=== PATIENT | female | born 1950 | race Caucasian/White ===

== ENCOUNTER 2019-09-23 07:26 | Day surgery (SDC) | payer OTHER ==
[2019-09-16 15:18] LABS: Hematocrit 36.2 % (36.0-45.0); RBC Red Blood Cell Count 3.64 M/uL (3.86-4.86)
[2019-09-16 15:19] LABS: Absolute Lymphocytes (CBC) 0.9 K/uL (0.7-4.9); Basophils % 0.6 % (0-1.3); Lymphocytes % 21.1 % (15.3-44.8); MPV 10.1 fL (7.6-11.3)
[2019-09-16 15:25] LABS: Albumin 4.3 g/dL (3.4-5.0); Bilirubin Total 0.6 mg/dL (0.2-1.0); Potassium 3.1 mmol/L (3.5-5.1); Protein, Total 8.5 g/dL (6.4-8.2)
--- NOTE | 2019-09-16 21:25 | RAD REPORT ---
EXAM DESCRIPTION: RAD - Chest Pa And Lat (2 Views) - 09/16/2019 9:09 pm CLINICAL HISTORY: pre op for surgery Chest pain. COMPARISON: No comparisons TECHNIQUE: PA and lateral views of the chest were obtained. FINDINGS: The lungs are hyperexpanded compatible with COPD. The heart is upper limit of normal in si ze. No fracture or aggressive bony process. IMPRESSION: COPD without acute process identified.
--- NOTE | 2019-09-17 10:54 | EKG ---
Test Date: 2019-09-16 Test Time: 14:48:08 Pumper Gager Apprentice: Noemi Saavedra MEASUREMENT RESULTS: Intervals: Rate: 68 TN: 172 QRSD: 86 QT: 420 QTc: 446 [place]: P: 70 TN: 172 QRS: 74 T: 63 INTERPRETIVE STATEMENTS: Normal sinus rhythm Normal ECG Compared to ECG 05/14/2019 14:56:29 Atrial premature complex(es) no longer present Electronically Signed On 09-17-19 10:53:23 CDT by Ashwin Crenshaw
--- OUTSIDE RECORDS SUMMARY | 2019-09-23 07:28 | XMS REPORT | Continuity of Care Document ---
:1950 Author Organization [employer] Care Team Providers Name Role Phone [employer] Unavailable Un available Problems Problem Status Onset Classification Date Comments Sourc e Date Reported Cervical Active Problem 09/02/2019 [facility] myelopathy Neuro (disorder) Hypothyroidism Active Problem 09/02/2019 Misc her (disorder) Neuro Skin ulcer Active Problem 09/02/2019 Mischer (disorder) Neuro Medications Medication Details Route Status Patient Ordering Order Source Instructions Provider Date thyroid (SHELTER) 15 MG 15 mg = 1 Active Mi josie Oral Tablet [CLEAN RICE BROKER tab, PO, 020 Neuro Thyroid] Daily, 0 Refill(s) SMZ-TMP DS 800 mg- PO, BID, Active Misc her 160 mg oral tablet 0 020 Neuro Refill(s) CLEAN RICE BROKER Thyroid 75 mg, Active Mischer PO, 020 Neuro Daily, 0 Refill(s) Hydrochlorothiazide 50 mg, Active Misc her PO, 020 Neuro Daily, 0 Refill(s) Acetaminophen 325 MG 1 tab, Active Mis bakari / Hydrocodone PO, TID, 020 Neuro Bitartrate 10 MG Oral 0 Tablet Refill(s) SMZ-TMP DS 800 mg- 500 mg, Active Misch er 160 mg oral tablet PO, 020 Neuro Daily, 0 Refill(s) Cipro 500 mg, Active Mischer PO, BID, 020 Neuro 0 Refill(s) Allergies, Adverse Reactions, Alerts Substance Category Reaction Severity Reaction Status Date Comments S ource type Reported Cymbalta Assertion headaches Drug Active Mis bakari allergy Neuro Lyrica Assertion swelling Drug Active Misch er allergy Neuro Immunizations No Data Provided for This Section Results No Data Provided for This Section Pathology Reports No Data Provided for This Section Diagnostic Reports No Data Provided for This Section Consultation Notes No Data Provided for This Section Discharge Summaries No Data Provided for This Section History and Physicals No Data Provided for This Section Vital Signs Vital Sign Value Date Comments Source Systolic (mm Hg) 143 [place] [facility] [place] Diastolic (mm Hg) 87 07[place]11/2019 [facility] [place] Heart Rate 86 07/11/2019 [facility] [place] Respitory Rate 16 07[place]11/2019 [facility] [place] Height 172.72 cm 07/11/2019 [facility] [place] 56.364 07[place]11/2019 [facility] [place] BMI Calculated 18.89 07/11/2019 [facility] [place] Encounters Location Location Encounter Encounter Reason Attending ADM DC Stat us Source Details Type Number For Provider Date Date Visit Outpatient [id number] Roland 07/10 Active [facility] Dwayne MNA Outpatient [id number] [place] 07/10 [place]11 [facility] [place] [facility] [place] Out[place] [id number] Roland 08/12 Active [facility] D[place] MNA Ambulatory [id number] [place] 08/12 08/12 [facility] [place] Neuro [place] MNA Outside [id number] 08/29 08/31 [facility] Neurology Medical /2019 Neuro [facility] Records Outpatient [id number] Roland 10/21 Active [facility] [place] Procedures No Data Provided for This Section Assessment and Plan No Data Provided for This Section Plan of Care No Data Provided for This Section Social History Social History Date Source Social History [place]Response [place] [facility] [place] Smoking Status Never smoker; Exposure to Tobacco Smoke None; Cigarette Smoking Last 365 Days No; Reg Smoking Cessation Counseling No entered on: 07/11/19 Family History No Data Provided for This Section Advance Directives No Data Provided for This Section Functional Status No Data Provided for This Section
--- OUTSIDE RECORDS SUMMARY | 2019-09-23 07:29 | XMS REPORT | Continuity of Care Document ---
:1950 Author Organization [facility] t Address [address] [place] [address] Care Team Providers Name Role Phone Keon Luz MD Attending Clinician Jeet Kay Attending Clinician Radiology Attending Clinician Unavailable Pob, Lab Main Attending Clinician Unavailable Vani JENSEN, L Attending Clinician Problems Condition Condition Condition Status Onset Resolution Last Treating Co mments Source Name Details Category Date Date Treatment Clinician Date Cervical Problem Active 2019-09-02 Mem oria myelopathy 22:57:55 l (disorder) Cervical He rmann myelopathy (disorder) Active Problem 09/02/2019 [facility] Hypothyroi Problem Active 2019-09-02 M emoria dism 22:57:55 l (disorder) Buster n Hypothyroi dism (disorder) Active Problem 09/02/2019 [facility] Skin ulcer Problem Active 2019-09-02 M emoria (disorder) 22:57:55 l Skin [place] ulcer (disorder) Active Problem 09/02/2019 [facility] Allergies, Adverse Reactions, Alerts Allergy Allergy Status Severity Reaction(s) Onset Inactive Treating Comm ents Source Name Type Date Date Clinician Adrian Campbell Active Tobiasori a rainer Rice Lyrica Lyrica Active Memoria l Dwayne Social History Smoking Status Start Date Stop Date Source Social History [facility] [place] Medications Ordered Filled Start Stop Current Ordering Indication Dosage Frequency Signature Comments Components Source Medication Medication Date Date Medication? Clinician (SIG) Name Name thyroid 2019-0 Yes 15 mg = 1 Memor ia (CARE HOME) 15 MG 5-21 tab, PO, l Oral Tablet 20:43: Daily, 0 He rmann [NARROW FABRIC LOOM FIXER 00 Refill(s) Thyroid] SMZ-TMP DS 2020-0 Yes PO, BID, 0 M emoria 800 mg- 160 5-21 Refill(s) l mg oral 20:14: [place] tablet 00 [employer] FIXER Thyroid 2020-0 Yes 75 mg, PO, M emoria 5-21 Daily, 0 l 20:08: Refill(s) [place] 00 Hydrochloro 2020-0 Yes 50 mg, PO, Memoria thiazide 5-21 Daily, 0 l 20:08: Refill(s) [place] 00 Acetaminoph 2020-0 Yes 1 tab, PO, Memoria en 325 MG / 5-21 TID, 0 l Hydrocodone 20:08: Refill(s) H ermann Bitartrate 00 10 MG Oral Tablet SMZ-TMP DS 2019-0 Yes 500 mg, Jaylen joseph 800 mg- 160 5-21 PO, Daily, l mg oral 20:08: 0 D[place] tablet 00 Refill(s) Cipro 2019-0 Yes 500 mg, Memoria 5-21 PO, BID, 0 l 20:08: Refill(s) [place] 00 Vital Signs Vital Name Observation Time Observation Value Comments Source Systolic (mm Hg) 2019-07-11 20:05:00 Jaylen rial Dway[place] Diastolic (mm Hg) 2019-07-11 20:05:00 Tobias Rice Heart Rate 2019-07-11 20:05:00 [facility] Respitory Rate 2019-07-11 20:05:00 Damon Vasquez Height 2019-07-11 20:05:00 172.72 cm [facility] Weight 2019-07-11 20:05:00 [facility] BMI Calculated 2019-07-11 20:05:00 Damon Vasquez Procedures This patient has no known procedures. Encounters Start End Encounter Admission Attending Care Care Encounter Source Date/Time Date/Time Type Type Clinicians Facility Department ID 2019-08-30 2019-08-31 Outpatient MHMISCHER MHMISCHER [id number] 09:05:31 23:59:59 00 2019-08-30 2019-08-30 Telephone SCAR Luz [id number] 00:00:00 00:00:00 Pau Meraz [id number] [place] [id number] Professio [phone] formerly [facility] 044 [facility] [address] 2019-08-13 2019-08-13 Outpatient RHINA KayER [id number] 15:00:00 15:00:00 Roland 01 [facility] 2019-07-25 2019[facility]07[facility] [id number] 00:00:00 00:00:00 Pau Meraz [id number] [place] [id number] Professio [phone] formerly [facility] 044 [facility] [address] 2019-07-18 2019-07-18 Hospital Radiology [facility] [id number] 15:30:00 23:59:00 Encounter Mariya [id number] [place] [id number] Arnold [id number] 2019-07-18 2019-07-18 Senior Procurement Manager Alba Mancini [facility] [id number] 16:51:26 17:06:26 Visit Lab Main Mariya [id number] [place] [id number] Professio [phone] [facility] 353 [facility] [address] 2019-07-11 2019-07-11 Outpatient RHINA KayJUANA [id number] 15:15:00 23:59:59 Roland 00 [facility] 2019-06-17 2019-06-17 Office [facility] [id number] 15:14:37 16:05:26 Visit [facility] [id number] Surgical [id number] Specialti [phone] Ginna Meraz Results This patient has no known results.
[2019-09-23] MEDS ORDERED: MINERAL OIL, LITE 10 ML VIAL ONE (07:59)
[2019-09-23] MEDS ORDERED: Ringers Lactate 1,000 ML IV ONE (08:00)
[2019-09-23] MEDS ORDERED: CEFAZOLIN/SWI 1gm 1 GM/10 ML SYR ONE (08:00)
[2019-09-23] MEDS ORDERED: MIDAZOLAM HCL 2 MG/2 ML INJ ONE (08:34)
[2019-09-23] MEDS ORDERED: ROPLVACAINE HCL 40 ML ONE (08:34)
[2019-09-23] MEDS ORDERED: LIDOCAINE 2% MPF 5 ML VIAL ONE ×2 (08:34→08:39)
[2019-09-23] MEDS ORDERED: dexAMETHasone 10 MG/ML VIAL ONE (08:36)
[2019-09-23] MEDS ORDERED: propofoL 200 MG/20 ML VIAL IV ONE (08:36)
[2019-09-23] MEDS ORDERED: FENTANYL CITR 100 MCG/2 ML ONE (08:36)
[2019-09-23] MEDS ORDERED: BUPIVACAINE 0.5% PF 10 ML VIAL ONE (08:49)
[2019-09-23] MEDS ORDERED: EPHEDRINE SULF 50 MG/ML VIAL ONE (09:07)
[2019-09-23] MEDS ORDERED: KCL 20 MEQ/100 mL IVPB 20 MEQ/100 ML BAG IV SCH (10:00)
[2019-09-23 10:46] VITALS: BP 146/83; TEMP 97.6; O2SAT 95
[2019-09-23] MEDS ORDERED: HYDROCODONE/APAP 7.5/325 MG TAB ONE (10:57)
--- NOTE | 2019-09-23 20:19 | OP ---
Date of Procedure: 09/23/2019 Surgeon: Tomas Howard MD Head Of Insight: None. Preoperative Diagnosis: Nonhealing wound, left ankle. Postoperative Diagnosis: Nonhealing wound, left ankle. Procedure: Debridement of left ankle wound with split-thickness skin graft 5 x 2 cm from the left th igh. Specimen: None. Finding: As above. Anesthesia: General and regional femoral block used as well. Complications: None. Disposition: The patient tolerated the procedure, in stable condition, taken to Recovery in good gen eral condition. Description Of Procedure: The patient was brought to the OR and placed in supine position. General anesthesia was begun. The patient was prepped and draped in usual sterile fashion. Marcaine 0.5% wa s infiltrated locally. Then, curette was used to debride the wound approximately 5 x 2 cm on the lef t medial ankle off all fibrin, bleeding controlled with pressure. Then, mineral oil utilized and the n approximately a 5 x 2 cm segment of split-thickness skin graft 8th of an inch done in the standard fashion, then fenestrated in the standard fashion, then placed over the wound and secured with 3-0 ch romic circumferential. Then, Xeroform dressing applied to the left thigh and Actisorb dressing appli ed to the left ankle. Sterile dressing was applied. The patient was awakened and taken to Recovery in good general condition. Discharge Note: The patient will go to Day Surgery and home when stable. Disposition: Home. Condition: Stable. Discharge Instructions: Resume home medications and diet. Activity as tolerated. No heavy lifting. Keep dressing clean and dry, sponge bathe only. Follow up in the wound healing center in 1 week. Call for appointment. The patient has pain medicine already. /MODL Voice ID: [id number] Report ID: [id number]
== END 2019-09-23 11:15 | disposition home or self-care (01) ==
LOC: OR 07:26
PROVIDERS: ATTEND Surgery
PROC: 0HRLX74 Replacement of Left Lower Leg Skin with Autologous Tissue Substitute, Partial Thickness, External Approach (ICD-10-PCS; principal; 2019-09-23 08:30)
DX: I87.312 Chronic venous hypertension (idiopathic) with ulcer of left lower extremity (principal); L97.322 Non-pressure chronic ulcer of left ankle with fat layer exposed; I89.0 Lymphedema, not elsewhere classified; E03.9 Hypothyroidism, unspecified; Z11.59 Encounter for screening for other viral diseases; J44.9 Chronic obstructive pulmonary disease, unspecified
CPT/HCPCS: 93005; 85025; 36415 ×2; 84132; 80053; 71046; 15100; U0002; J2704; J3480; J2250; J3010; J1100; J2795; J0690; J7120

== ENCOUNTER 2022-10-27 17:24 | Inpatient (IN) | payer OTHER ==
[2022-10-27 18:53] LABS: Absolute Lymphocytes (CBC) 0.7 K/uL (0.7-4.9); Lymphocytes % 6.9 % (15.3-44.8); MCV 87.4 fL (80-100); MPV 7.6 fL (7.6-11.3); Platelets 521 thou/uL (152-406); RBC Red Blood Cell Count 3.43 M/uL (3.86-4.86)
[2022-10-27 19:05] LABS: Protime INR 1.2
[2022-10-27 19:09] LABS: Magnesium 1.5 mg/dL (1.6-2.4); Troponin High Sensitivity 7.1 pg/mL (<58.9)
--- NOTE | 2022-10-27 19:49 | RAD REPORT ---
EXAM DESCRIPTION: RAD - Chest Single View - 10/27/2022 7:22 pm CLINICAL HISTORY: SOB Chest pain. COMPARISON: Chest Pa And Lat (2 Views) dated 09/16/2019 FINDINGS: Portable technique limits examination quality. There is a large left pleural effusion. The right lung is grossly clear. The heart is normal in size. No displaced fractures. IMPRESSION: Large left pleural effusion.
--- NOTE | 2022-10-27 20:51 | EDPHYS ---
Physician Documentation [facility] Name: Heydi Palomo Age: 71 yrs Sex: Female : 1950 Arrival Date: 10/27/2022 Time: 17:24 Bed 18 Private MD: ED Physician Damian Downing HPI: 10/27 18:30 This 71 yrs old Female presents to ER via Wheelchair with complaints of sent by cp for fluid in lungs. 18:30 The patient has shortness of breath at rest. cp 18:30 Onset: The symptoms/episode began/occurred gradually. Patient is a 71-year-old female cp with past medical history significant for hypertension who presents to the emergency department after being referred by Dr. Sepulveda due to concern for fluid in lungs. Patient reports having an x-ray of her chest performed and being told that she had fluid buildup and needed to go to the emergency department for evaluation. Patient reports she was told this this past Monday and presents to the emergency department today for evaluation. Patient reports increasing shortness of breath and dyspnea. The patient denies chest pain. Historical: - Allergies: 17:59 No Known Allergies; cm10 - PMHx: 17:59 Hypertensive disorder; cm10 - Immunization history:: Adult Immunizations unknown. - Social history:: Smoking status: unknown. ROS: 18:35 Respiratory: Positive for shortness of breath, at rest. Negative for wheezing. cp 18:35 Constitutional: Negative for body aches, chills, fever, poor PO intake. cp 18:35 Cardiovascular: Negative for chest pain. 18:35 Abdomen/GI: Negative for abdominal pain, nausea, vomiting, and diarrhea. 18:35 Eyes: Negative for injury, pain, redness, and discharge. cp 18:35 ENT: Negative for drainage from ear(s), ear pain, sore throat, difficulty swallowing, difficulty handling secretions. 18:35 : Negative for urinary symptoms. 18:35 Neuro: Negative for altered mental status, dizziness, headache, numbness, syncope, weakness. 18:35 All other systems are negative. cp Exam: 18:27 ECG was reviewed by the Attending Physician. cp 18:40 Constitutional: The patient appears in no acute distress, alert, awake, cp non-diaphoretic, non-toxic, well developed, well nourished. 18:40 Head/Face: Normocephalic, atraumatic. cp 18:40 Eyes: Periorbital structures: appear normal, Conjunctiva: normal, no exudate, no injection, Sclera: no appreciated abnormality, Lids and lashes: appear normal, bilaterally. 18:40 ENT: External ear(s): are unremarkable, Nose: is normal, Mouth: Lips: moist, Oral mucosa: pink and intact, moist, Posterior pharynx: is normal, airway is patent, no erythema, no exudate. 18:40 Neck: ROM/movement: is normal, is supple, without pain, no range of motions limitations. 18:40 Chest/axilla: Inspection: normal. 18:40 Cardiovascular: Rate: normal, Rhythm: regular, JVD: is not appreciated. 18:40 Respiratory: the patient does not display signs of respiratory distress, Respirations: labored breathing, that is mild, Breath sounds: decreased breath sounds, that are moderate, are heard in the left posterior upper lobe and left posterior lower lobe, stridor, is not appreciated, wheezing: is not appreciated. 18:40 Abdomen/GI: Inspection: abdomen appears normal, Palpation: abdomen is soft and non-tender, in all quadrants. 18:40 Back: pain, is absent, ROM is normal. 18:40 Skin: no rash present. 18:40 Neuro: Orientation: to person, place \T\ time. Mentation: is normal. Vital Signs: 17:57 BP 133 / 82; Pulse 98; Resp 18; Temp 98.1(TE); Pulse Ox 100% ; Weight 52.62 kg; Height cm10 5 ft. 7 in. ; Pain 7/10; 18:34 BP 139 / 91; Pulse 93; Resp 20 S; Pulse Ox 100% on R/A; kc6 19:36 BP 132 / 91; Pulse 84; Resp 17 S; Pulse Ox 95% on R/A; ha1 20:30 BP 132 / 83; Pulse 82; Resp 16 S; Pulse Ox 100% on R/A; ha1 17:57 Body Mass Index 18.17 (52.62 kg, 170.18 cm) cm10 17:57 Pain Scale: Adult cm10 MDM: 18:14 Patient medically screened. cp 19:23 ED course: left msg on voicemail for DR Sepulveda. cp 19:53 ED course: spoke with DR Sepulveda who requests patient be admitted to services of cp hospitalist with consult for DR Gale. 20:15 Management of patient was discussed with the following: Rehab Nursing Tech: DR Gale, general surgery, will consult after discussion. 21:05 Data reviewed: vital signs, nurses notes, lab test result(s), EKG, radiologic studies, cp CT scan, plain films. 21:05 Management of patient was discussed with the following: Hospitalist: Annamaria Teresa NP cp will admit after discussion. Independent interpretation of the following test(s) in the Emergency Department EKG: See my EKG interpretation above. Counseling: I had a detailed discussion with the patient and/or guardian regarding the historical points, exam findings, and any diagnostic results supporting the discharge/admit diagnosis, lab results, radiology results, the need for further work-up and treatment in the hospital. 10/27 18:20 Order name: Basic Metabolic Panel; Complete Time: 19:18 cp 10/27 19:18 Interpretation: Normal except: NA 132; K 3.0; CL 97; GFR 84. cp 10/27 18:20 Order name: CBC with Diff; Complete Time: 19:18 cp 10/27 19:18 Interpretation: Normal except: RBC 3.43; HGB 9.6; HCT 30.0; PLT 521; RDW 17.4; MARYJANE% cp 83.1; NEUT A 8.2; LYM% 6.9. 10/27 18:20 Order name: Magnesium; Complete Time: 19:18 cp 10/27 18:20 Order name: NT PRO-BNP; Complete Time: 19:18 cp 10/27 18:20 Order name: PT-INR; Complete Time: 19:18 cp 10/27 18:20 Order name: Troponin HS; Complete Time: 19:18 cp 10/27 20:56 Order name: Urinalysis w/ reflexes EDMS 10/27 20:56 Order name: Basic Metabolic Panel EDMS 10/27 20:56 Order name: Basic Metabolic Panel; Complete Time: 23:14 EDMS 10/27 20:56 Order name: CBC with Automated Diff EDMS 10/27 20:56 Order name: CBC with Automated Diff; Complete Time: 23:14 EDMS 10/27 20:56 Order name: Magnesium EDPR 10/27 20:56 Order name: Magnesium; Complete Time: 23:14 EDPR 10/27 18:20 Order name: XRAY Chest (1 view); Complete Time: 19:51 10/27 19:53 Order name: CT Chest For PE Angio; Complete Time: 21:01 10/27 18:20 Order name: EKG; Complete Time: 18:20 10/27 20:54 Order name: CONS Physician Consult EDPR 10/27 20:56 Order name: CONS Physician Consult [facility] 10/27 20:56 Order name: 60g Consistent Carbohydrate (ADA 1800/1999) EDPR 10/27 20:56 Order name: NPO EDPR 10/27 18:20 Order name: Cardiac monitoring; Complete Time: 18:33 10/27 18:20 Order name: EKG - Nurse/Tech; Complete Time: 18:33 10/27 18:20 Order name: IV Saline Lock; Complete Time: 18:33 10/27 18:20 Order name: Labs collected and sent; Complete Time: 18:33 10/27 18:20 Order name: O2 Per Protocol; Complete Time: 18:33 10/27 18:20 Order name: O2 Sat Monitoring; Complete Time: 18:33 10/27 20:47 Order name: Oxygen; Complete Time: 21:16 cp EC:27 Rate is 99 beats/min. Rhythm is regular. MT interval is shortened at 109 msec. QRS cp interval is normal. QT interval is normal. T waves are Inverted in leads aVR, V2. Interpreted by me. Reviewed by me. Administered Medications: No medications were administered Disposition: 21:16 Co-signature as Attending Physician, Damian NGUYỄN was immediately available on-site ms3 in the Emergency Department for consultation in the care of the patient. Disposition Summary: 10/27/22 20:50 Hospitalization Ordered Hospitalization Status: Inpatient Admission cp Provider: Quique Pritchett cp [facility] cp Condition: Stable cp Problem: new cp Symptoms: have improved cp Bed/Room Type: Standard cp Room Assignment: 203(10/27/22 23:31) mw Diagnosis - Pleural effusion in other conditions classified elsewhere cp - Dyspnea cp Forms: - Medication Reconciliation Form cp - SBAR form cp - Leadership Thank You Letter cp Signatures: Dispatcher Alexandre de Paris Karissa Rashid RN RN mw Alcon Zaman PA PA cp Sims, Marcus, DO DO ms3 Eri Burns, MALINDA RN cm10 Corrections: (The following items were deleted from the chart) 23:31 20:50 marilu andre
--- NOTE | 2022-10-27 20:51 | ER ---
Nurse's Notes [facility] Name: Heydi Palomo Age: 71 yrs Sex: Female : 1950 Arrival Date: 10/27/2022 Time: 17:24 Bed 18 Private MD: Diagnosis: Pleural effusion in other conditions classified elsewhere;Dyspnea Presentation: 10/27 17:57 Chief complaint: Patient states: Having a CT done on Oct 05 and was called Monday cm10 night and was told to come to the ED due to having fluid in left lung. Pt reports chest pain and shortness of breath. Coronavirus screen: Vaccine status: Patient reports being unvaccinated. Client denies travel out of the [place] in the last 14 days. Ebola Screen: Patient denies travel to an Ebola-affected area in the 21 days before illness onset. No symptoms or risks identified at this time. Initial Sepsis Screen: Does the patient meet any 2 criteria? No. Patient's initial sepsis screen is negative. Does the patient have a suspected source of infection? No. Patient's initial sepsis screen is negative. Risk Assessment: Do you want to hurt yourself or someone else? Patient reports no desire to harm self or others. Onset of symptoms was October 27, 2022. 17:57 Method Of Arrival: Wheelchair cm10 17:57 Acuity: ERIN 2 cm10 Historical: - Allergies: 17:59 No Known Allergies; cm10 - PMHx: 17:59 Hypertensive disorder; cm10 - Immunization history:: Adult Immunizations unknown. - Social history:: Smoking status: unknown. Screenin:14 [facility] ED Fall Risk Assessment (Adult) History of falling in the last 3 months, kc6 including since admission No falls in past 3 months (0 pts) Confusion or Disorientation No (0 pts) Intoxicated or Sedated No (0 pts) Impaired Gait Yes (1 pt) Mobility Assist Device Used Yes (1 pt) Altered Elimination No (0 pt) Score/Fall Risk Level 0 - 2 = Low Risk. Abuse screen: Denies threats or abuse. Denies injuries from another. Nutritional screening: No deficits noted. Tuberculosis screening: No symptoms or risk factors identified. Assessment: 18:33 General: Appears in no apparent distress. comfortable, Behavior is calm, cooperative, kc6 appropriate for age. Pain: Complains of pain in chest. Neuro: Level of Consciousness is awake, alert, obeys commands, Oriented to person, place, time, situation, Appropriate for age. Cardiovascular: Reports chest pain, Heart tones S1 S2 present Capillary refill < 3 seconds Rhythm is sinus rhythm. Respiratory: Reports shortness of breath on exertion Airway is patent Trachea midline Respiratory effort is even, unlabored, Respiratory pattern is regular, symmetrical. GI: No signs and/or symptoms were reported involving the gastrointestinal system. : No signs and/or symptoms were reported regarding the genitourinary system. EENT: No signs and/or symptoms were reported regarding the EENT system. Derm: No signs and/or symptoms reported regarding the dermatologic system. Skin is intact, is healthy with good turgor, Skin is pink, warm \T\ dry. Musculoskeletal: No signs and/or symptoms reported regarding the musculoskeletal system. Circulation, motion, and sensation intact. Capillary refill < 3 seconds, Range of motion: intact in all extremities. 19:36 General: Appears comfortable, Behavior is calm, cooperative. Pain: Complains of pain in ha1 chest Pain does not radiate. Pain currently is 3 out of 10 on a pain scale. Quality of pain is described as pressure. Neuro: Level of Consciousness is awake, alert, obeys commands, Oriented to person, place, time, situation. Cardiovascular: Heart tones S1 S2 present Capillary refill < 3 seconds Patient's skin is warm and dry. Rhythm is sinus rhythm. Respiratory: Airway is patent Respiratory effort is even, unlabored, Respiratory pattern is regular, symmetrical. GI: Abdomen is flat, non-distended. Derm: Skin is pink, warm \T\ dry. 19:36 Cardiovascular: Reports chest pain, shortness of breath. ha1 20:30 Reassessment: Patient and/or family updated on plan of care and expected duration. Pain ha1 level reassessed. Patient is alert, oriented x 3, equal unlabored respirations, skin warm/dry/pink. 10/28 00:20 Reassessment: Patient and/or family updated on plan of care and expected duration. Pain ha1 level reassessed. Patient is alert, oriented x 3, equal unlabored respirations, skin warm/dry/pink. report given to MALINDA Rey. Vital Signs: 10/27 17:57 BP 133 / 82; Pulse 98; Resp 18; Temp 98.1(TE); Pulse Ox 100% ; Weight 52.62 kg; Height cm10 5 ft. 7 in. ; Pain 7/10; 18:34 BP 139 / 91; Pulse 93; Resp 20 S; Pulse Ox 100% on R/A; kc6 19:36 BP 132 / 91; Pulse 84; Resp 17 S; Pulse Ox 95% on R/A; ha1 20:30 BP 132 / 83; Pulse 82; Resp 16 S; Pulse Ox 100% on R/A; ha1 17:57 Body Mass Index 18.17 (52.62 kg, 170.18 cm) cm10 17:57 Pain Scale: Adult cm10 ED Course: 17:27 Patient arrived in ED. im 17:43 Alcon Zaman PA is PHCP. cp 17:43 Damian Downing DO is Attending Physician. cp 17:59 Triage completed. cm10 18:00 Arm band placed on Patient placed in waiting room. cm10 18:14 Mini Castelan, MALINDA is Primary Nurse. kc6 18:14 Patient has correct armband on for positive identification. Bed in low position. Call kc6 light in reach. Side rails up X2. Client placed on continuous cardiac and pulse oximetry monitoring. NIBP monitoring applied. tin worker on. 18:33 Inserted saline lock: 20 gauge in right forearm, using aseptic technique. Blood kc6 collected. 19:24 XRAY Chest (1 view) In Process Unspecified. EDMS 20:46 CT Chest For PE Angio In Process Unspecified. EDMS 20:49 Quique Pritchett is Hospitalizing Provider. cp 10/28 00:20 Provided Education on: need for admit. ha1 00:32 No provider procedures requiring assistance completed. Patient admitted, IV remains in ha1 place. Administered Medications: No medications were administered Medication: 00:32 VIS not applicable for this client. ha1 Outcome: 10/27 20:50 Decision to Hospitalize by Provider. cp 10/28 00:32 Admitted to Tele accompanied by nurse, via stretcher, room 403. ha1 Condition: good 00:42 Patient left the ED. ha1 Signatures: Dispatcher [employer] EDMS Alcon Zaman PA PA cp Ayala, Heidy, RN RN 1 Mini Castelan RN RN kc6 Ho, Anna im Grant, Eri, RN RN cm10
[2022-10-27] MEDS ORDERED: ONDANSETRON 4 MG/2 ML VIAL IV PRN (20:54)
--- NOTE | 2022-10-27 20:54 | RAD REPORT ---
EXAM DESCRIPTION: CT - Chest For Pe Angio - 10/27/2022 8:44 pm CLINICAL HISTORY: Chest pain. SOB COMPARISON: Thoracic Spine Wo Contr dated 06/22/2021; C Spine Wo Cont dated 05/19/2021 TECHNIQUE: CT angiogram of the pulmonary arteries was performed with MIP. All CT scans are performed using dose optimization technique as appropriate and may include automated exposure control or mA/KV adjustment according to patient size. FINDINGS: No evidence of pulmonary thromboembolism. No acute aortic finding demonstrated. The right lung is emphysematous. Large left pleural effusion with significant atelectasis of the left lung. Patchy opacities are also present in the left upper lobe. No concerning bony finding. Right-sided paraspinal varicosities. IMPRESSION: No evidence of pulmonary thromboembolism. Large left pleural effusion.
--- NOTE | 2022-10-27 20:55 | P.HP ---
Certification for Inpatient Patient admitted to: Inpatient With expected LOS: <2 Midnights Patient will require the following post-hospital care: None Practitioner: I am a practitioner with admitting privileges, knowledge of patient current condition, hospital course, and medical plan of care. Services: Services provided to patient in accordance with Admission requirements found in Title 42 Section 412.3 of the Code of Federal Regulations Patient History Date of Service: 10/27/22 History of Present Illness: 71-year-old female with a past medical history of hypertension, hypothyroidism chronic pain, chronic wound to the lower foot ankle x 6 years presents to the emergency room with shortness of breath. She reports shortness of breath is worse with exertion. She reports occasional nonproductive cough, no reported chest pain fever, nausea vomiting diarrhea., she denies history of cancer. VS BP 133 / 82; Pulse 98; Resp 18; Temp 98.1(TE); Pulse Ox 100% ; plan to admit for - Pleural effusion in other conditions classified elsewhere, Dyspnea Dr. Sepulveda pulmonary, Dr. Gale, consulted for Pleurx catheter in the a.m. Laboratory evaluation WBCs within normal limit, normocytic anemia 9.6, 30.1 neutrophils 83.1, mild hyponatremia 132, mild hypokalemia 3.0, BUN and creatinine normal 14, 0.76, BNP 497, troponin normal 7.1CTA IMPRESSION: No evidence of pulmonary thr omboembolism, The right lung is emphysematous.Large left pleural effusion with significant atelectasis of the left lung. Patchy opacities are also present in the left upper lobe.No concerning bony finding. Right-sided paraspinal varicosities. Chest x-ray large left pleural effusion Allergies No Known Allergies Allergy (Verified 03/01/17 11:25) Home Medications: Hydrocodone 10/APAP 325 [[place] 10/325*] 1 tab PO QID 03/02/17 Thyroid,Pork [[place]aron Thyroid] 60 mg PO DAILY 03/02/17 Thyroid,Pork [[place]aron Thyroid] 15 mg PO DAILY 09/12/19 hydroCHLOROthiazide [Hydrochlorothiazide] 50 mg PO DAILY 09/12/19 Acetic Acid 0.25% [Acetic Acid 0.25%*] 10 ml IR DAILY 09/16/19 Collagenase [Santyl Ointment] 15 gm TP SEECOM 07/27/20 Silver Sulfadiazine Crm [Silvadene] 1 appl TOP SEECOX [place] 09/16/19 - Past Medical/Surgical History Diabetic: No -: Chronic Venous wound left ankle -: Hypothyroidism -: Edema BLE -: partial hip replacement 2009 -: Partial hip replacement - Social History Smoking Status: Never smoker Alcohol use: No CD- Drugs: No Caffeine use: No Place of Residence: Home Review of Systems 10-point ROS is otherwise unremarkable Physical Examination - Physical Exam General: Alert, In no apparent distress, Oriented x3 HEENT: Atraumatic, Normocephalic, PERRLA Neck: Supple, 2+ carotid pulse no bruit, JVD not distended Respiratory: Diminished, Other (Large left pleural effusion, dyspneic worse with exertion) Cardiovascular: No edema, Normal pulses, Regular rate/rhythm, Normal S1 S2 Capillary refill: <2 Seconds Gastrointestinal: Soft and benign Musculoskeletal: No clubbing, No swelling Integumentary: Other (Chronic ankle wound) Neurological: Normal speech, Normal strength at 5/5 x4 extr, Normal tone, Crani al nerves 3-12 intact - Studies Laboratory Data (last 24 hrs) 10/27/22 10/27/22 10/27/22 18:30 18:30 18:30 WBC 9.90 Hgb 9.6 L Hct 30.0 L Plt Count 521 H PT 13.2 H INR 1.20 Sodium 132 L Potassium 3.0 L BUN 14 Creatinine 0.76 Glucose 95 Magnesium 1.5 L Assessment and Plan - Plan Assessment plan Dyspnea acute Large left pleural effusion acute Elevated BNP Hyponatremia Hypokalemia Normocytic anemia Chronic ankle wound Chronic pain DVT prophylaxis Assessment plan Dyspnea Large left pleural effusion Elevated BNP Patient is on HCTZ Dr. Sepulveda pulmonary, Dr. Gale, consulted for Pleurx catheter in the a.m. BNP 497, troponin normal 7.1 CTA IMPRESSION: No evidence of pulmonary thromboembolism, The right lung is emphysematous.Large left pleural effusion with significant atelectasis of the left lung. Patchy opacities are also present in the left upper lobe.No concerning bony finding. Right-sided paraspinal varicosities. Chest x-ray large left pleural effusion Hyponatremia Hypokalemia mild hyponatremia 132, mild hypokalemia 3.0, BUN and creatinine normal 14, 0.76, trend electrolytes, replace prn Normocytic anemia normocytic anemia 9.6, Hypothyroidism resume home med Chronic ankle wound Chronic pain Resume appropriate home meds [place] 10 mg Wound care consult being followed by wound care Left Medial Ankle Venous HTN w/Ulceration: Full Thickness Lymphedema: Primary Wound Measurements: 11.0 x 9.1 x 0.3 cm Diet n.p.o. after midnight Full code DVT SCDs, Discharge Plan: Home Plan to discharge in: 48 Hours - Advance Directives Does patient have a Living Will: No Does patient have a Durable POA for Healthcare: No - Code Status/Comfort Care Code Status: Full Code Physician Review: Patient Assessed, Agree with Above Assessment and Plan Critical Care: No Time Spent Managing Pts Care (In Minutes): 50
[2022-10-27] MEDS ORDERED: POTASSIUM 25 MEQ EFFERV TAB PO ONE (22:01)
[2022-10-27] MEDS: HYDROCODONE/APAP 10/325 TAB PO PRN (22:35)
[2022-10-27] MEDS: ALPRAZOLAM 0.25 MG TABLET PO PRN (22:50)
[2022-10-27] MEDS ORDERED: POTASSIUM 25 MEQ EFFERV TAB ONE (22:58)
[2022-10-27] MEDS ORDERED: ALPRAZOLAM 0.25 MG TABLET ONE (23:06)
[2022-10-27] MEDS ORDERED: HYDROCODONE/APAP 10/325 TAB ONE (23:07)
[2022-10-28 04:01] LABS: Absolute Lymphocytes (CBC) 0.7 K/uL (0.7-4.9); Hematocrit 24.5 % (36.0-45.0); Lymphocytes % 10.1 % (15.3-44.8); MPV 7.7 fL (7.6-11.3); Platelets 431 thou/uL (152-406); RBC Red Blood Cell Count 2.85 M/uL (3.86-4.86)
[2022-10-28 04:20] LABS: Magnesium 1.4 mg/dL (1.6-2.4); Potassium 3.3 mEq/L (3.5-5.1)
[2022-10-28] MEDS ORDERED: Magnesium Sulfate 2gm IVPB 2 G/50 ML BAG IV ONE (04:44)
[2022-10-28] MEDS: LEVOTHYROXINE SOD 0.075 MG TAB PO SCH (06:30)
[2022-10-28 06:49] LABS: Urine Bacteria None Seen /HPF (<20); Urine Bilirubin NEGATIVE (Negative); Urine Blood Negative (Negative); Urine Clarity Clear (Clear); Urine Color Light-Yellow (Yellow); Urine Glucose NEGATIVE (Negative); Urine Protein NEGATIVE (Negative); Urine RBC <5 /HPF (None Seen); Urine Urobilinogen Normal (Normal); Urine pH 6.5 (5.0-7.0)
[2022-10-28 06:50] LABS: Specific Gravity > 1.030 (1.005-1.030)
[2022-10-28] MEDS: KCL 20 MEQ/100 mL IVPB 20 MEQ/100 ML BAG IV SCH ×2 (07:00→07:28)
[2022-10-28] MEDS ORDERED: NA CHLORIDE 0.9% 250 ML ONE (07:23)
[2022-10-28] MEDS: lisinopriL 20 MG TAB PO SCH (09:00)
[2022-10-28] MEDS: hydroCHLOROthiazide 25 MG TAB PO SCH (09:00)
[2022-10-28] MEDS ORDERED: Ringers Lactate 1,000 ML IV ONE (10:00)
[2022-10-28] MEDS ORDERED: CEFAZOLIN SODIUM 1 GM/VIAL ONE (11:53)
[2022-10-28] MEDS ORDERED: FENTANYL CITR 100 MCG/2 ML ONE ×2 (12:01→13:43)
[2022-10-28] MEDS ORDERED: KETOROLAC 30 MG/ML INJ ONE (12:02)
[2022-10-28] MEDS ORDERED: LIDOCAINE 2% MPF 5 ML VIAL ONE (12:02)
[2022-10-28] MEDS ORDERED: ONDANSETRON 4 MG/2 ML VIAL ONE (12:02)
[2022-10-28] MEDS ORDERED: propofoL 200 MG/20 ML VIAL IV ONE (12:02)
--- NOTE | 2022-10-28 12:55 | P.OP ---
Preoperative diagnosis: LEFT Pleural Effusion Postoperative diagnosis: LEFT Pleural Effusion Primary procedure: Placement of LEFT Thoracic Tunneled Pleur-X Catheter Anesthesia: MAC + Local Estimated blood loss: < 2cc Specimen: Pleural Fluid Findings: Dark Brown / Redish Fluid Complications: None Drain(s): Other (Pleur X Catheter) Transferred to: Recovery Room Condition: Good
[2022-10-28] MEDS: HYDROMORPHONE HCL 1 MG/ML INJ ONE ×2 (13:05→13:16)
--- NOTE | 2022-10-28 13:42 | RAD REPORT ---
EXAM DESCRIPTION: [place] Single View10/28/2022 1:17 pm CLINICAL HISTORY: Device placement/ left pleural catheter IMPRESSION: Left pleural catheter has been placed into the left lower hemithorax. It is coiled with its tip left lateral chest. Evacuation of some of the pleural fluid. No pneumothorax seen
--- NOTE | 2022-10-28 14:21 | OP ---
Date of Procedure: 10/28/2022 Surgeon: Piter Gale MD, Preoperative Diagnosis: Left pleural effusion. Postoperative Diagnosis: Left pleural effusion. Procedure Performed: Placement of left thoracic tunneled PleurX catheter. Anesthesia: MAC plus local with 1% lidocaine without epinephrine. Estimated Blood Loss: Less than 2 cc. Specimen: Pleural fluid. Findings: Dark brown/reddish pleural fluid appreciated, 1 L removed immediately at the time of surge ry. Complications: None. Drain: A PleurX catheter in the left thoracic space. Disposition: The patient was transferred to the recovery room in good condition. Procedure In Detail: After informed consent was obtained, the patient was brought to the operating r oom, prepped and draped in the usual sterile fashion after adequate anesthesia was achieved. I anest hetized an area of the left fifth and sixth intercostal space down to subcutaneous tissues including an entire tract inferior from this area with 1% lidocaine. I then made a small malika incision overlyi ng the fifth and sixth intercostal space using a finder needle going over the rib. I cannulated the left thoracic space on the first attempt without incident or complication. Dark alvarado brownish red f luid was immediately returned and some of this was sent off for pathologic examination. At this poin t, I advanced a wire into the thoracic space and removed the introducer sheath. At this point, I per formed sequential dilatation using Seldinger technique and placed the catheter on the field. At this point, I brought the catheter up through the tunneling device through a separate stab incision infer ior from this that was previously anesthetized and advanced the introducer sheath at this point. At this point, the catheter was placed into the thoracic space without evidence of complication. The in troducer sheath was removed in its entirety. No leakage of fluid was appreciated this point. I then attached the catheter to a Vacutainer and got approximately 1 L of dark brown reddish fluid returned to a negative pressure bottle immediately. This will be sent for pathologic examination. The area was then cleansed, disconnected, and sterile dressing was placed over top. The patient tolerated the procedure well without evidence of complication and transferred to PACU in good condition. All coun ts were correct at the end of the case. RACIEL/DOT Voice ID: [id number] Report ID: [id number]
[2022-10-28] MEDS: HYDROCODONE/APAP 10/325 TAB PO PRN ×2 (14:58→19:34)
[2022-10-28] MEDS ORDERED: POTASSIUM 25 MEQ EFFERV TAB PO ONE (15:00)
[2022-10-28] MEDS ORDERED: KCL 20 MEQ/100 mL IVPB 20 MEQ/100 ML BAG IV ONE (15:00)
--- NOTE | 2022-10-28 15:23 | P.PN ---
Subjective Date of Service: 10/28/22 Patient has no new complaint except shortness of breath. She is short of breath with speaking. She denies any chest pain. Physical Examination - Vital Signs Temperature: 97.2 F Blood Pressure: 120/65 Pulse: 84 Respirations: 16 Pulse Ox (%): 97 - Studies Laboratory Data (last 24 hrs) 10/27/22 10/27/22 10/27/22 18:30 18:30 18:30 WBC 9.90 Hgb 9.6 L Hct 30.0 L Plt Count 521 H PT 13.2 H INR 1.20 Sodium 132 L Potassium 3.0 L BUN 14 Creatinine 0.76 Glucose 95 Magnesium 1.5 L Assessment And Plan - Plan Physical Exam General: Alert, In no apparent distress, Oriented x3 Neck: Supple, JVD not distended Respiratory: Diminished on the left, no crackles. Cardiovascular: No edema, Normal pulses, Regular rate/rhythm, Normal S1 S2 Gastrointestinal: Soft and benign Musculoskeletal: No swelling Integumentary: Ankle wound Neurological: Normal speech, Normal strength at 5/5 x4 extr, Normal tone, Cranial nerves 3-12 intact Diagnosis Acute respiratory failure with hypoxia Large left pleural effusion Emphysema/COPD Hyponatremia Hypokalemia Normocytic anemia Chronic ankle wound Plan Dyspnea Large left pleural effusion/COPD/emphysema Acute diastolic heart failure Dr. Sepulveda pulmonary, Dr. Gale, consulted. Status post Pleurx catheter by Dr. Gale. Continue to monitor. Wean off oxygen Start IV Lasix Hyponatremia Hypokalemia Fluid restriction Monitor renal function Normocytic anemia Monitor and transfuse as needed for hemoglobin less than 7. Hypothyroidism Continue home medication Chronic ankle wound Local wound care Venous HTN w/Ulceration Lymphedema Lasix Keep lower extremity elevated ull code DVT: Heparin Discharge Plan: Home
--- NOTE | 2022-10-28 16:59 | EKG ---
Test Date: 2022-10-27 Test Time: 18:21:52 [employer] Pr[employer] Operator: JENNIFER MEASUREMENT RESULTS: Intervals: Rate: 99 VA: 106 QRSD: 80 QT: 350 QTc: 449 Max: P: 32 VA: 106 QRS: 63 T: 26 INTERPRETIVE STATEMENTS: Sinus rhythm with short VA with premature atrial complexes Possible Lateral infarct, age undetermined Abnormal ECG Electronically Signed On 10-28-22 16:58:12 CDT by Hector Batres
[2022-10-28] MEDS: FUROSEMIDE 40 MG/4 ML VIAL IV SCH (17:09)
[2022-10-28] MEDS: ALPRAZOLAM 0.25 MG TABLET PO PRN (19:34)
[2022-10-28] MEDS: ENSURE ENLIVE 237 ML CAN PO SCH (19:35)
[2022-10-29] MEDS: HYDROCODONE/APAP 10/325 TAB PO PRN ×2 (02:22→22:15)
[2022-10-29 03:34] LABS: Absolute Lymphocytes (CBC) 0.8 K/uL (0.7-4.9); Hematocrit 27.8 % (36.0-45.0); Lymphocytes % 9.8 % (15.3-44.8); MPV 7.9 fL (7.6-11.3); Platelets 552 thou/uL (152-406); RBC Red Blood Cell Count 3.28 M/uL (3.86-4.86)
[2022-10-29 03:51] LABS: Potassium 4.2 mEq/L (3.5-5.1)
[2022-10-29] MEDS: LEVOTHYROXINE SOD 0.075 MG TAB PO SCH (05:28)
--- NOTE | 2022-10-29 08:54 | RAD REPORT ---
EXAM DESCRIPTION: RAD - Chest Single View - 10/29/2022 6:57 am CLINICAL HISTORY: effusion Chest pain. COMPARISON: Chest Single View dated 10/28/2022; Chest Single View dated 10/27/2022; Chest Pa And Lat (2 Views) dated 09/16/2019 FINDINGS: Portable technique limits examination quality. Left pleural effusion is again noted showing no real change since yesterday's study. Left pleural cat heter is place. The right lung is grossly clear. Heart size is suspected to be mildly enlarged. IMPRESSION: No significant change is seen since 10/28/2022 study.
[2022-10-29] MEDS: lisinopriL 20 MG TAB PO SCH (09:00)
[2022-10-29] MEDS: ENOXAPARIN 40 MG/0.4 ML SQ SCH ×2 (09:00→09:44)
[2022-10-29] MEDS: FUROSEMIDE 40 MG/4 ML VIAL IV SCH (09:00)
[2022-10-29] MEDS: hydroCHLOROthiazide 25 MG TAB PO SCH (09:00)
[2022-10-29] MEDS: ENSURE ENLIVE 237 ML CAN PO SCH ×2 (09:00→20:46)
--- NOTE | 2022-10-29 09:30 | P.CNS ---
Date of Consult: 10/28/22 Reason for Consult: Pleural effusion possible lung cancer Chief Complaint: Shortness of breath and chronic hoarseness History of Present Illness: Patient is 71 years of age evaluated for me as an outpatient for hoarseness and a lung mass develop progressive shortness of breath weight loss hoarseness is a large lung mass and left-sided pleural effusion from the emergency room due to worsening dyspnea and insertion of a Pleurx catheter is an occasional nonpr oductive cough planing of some chest pain 7 Allergies No Known Allergies Allergy (Verified 10/28/22 00:29) Home Medications: Hydrocodone 10/APAP 325 [[place] 10/325*] 1 tab PO QID 03/02/17 Thyroid,Pork [[place] Thyroid] 60 mg PO DAILY 03/02/17 Thyroid,Pork [[place] Thyroid] 15 mg PO DAILY 09/12/19 hydroCHLOROthiazide [Hydrochlorothiazide] 50 mg PO DAILY 09/12/19 Acetic Acid 0.25% [Acetic Acid 0.25%*] 10 ml IR DAILY 09/16/19 Collagenase [Santyl Ointment] 15 gm TP SEECOM 09/16/19 Silver Sulfadiazine Crm [Silvadene] 1 appl TOP SEECOM 09/16/19 Lisinopril [Zestril] 10 mg PO DAILY 10/28/22 - Past Medical/Surgical History Diabetic: No -: Chronic Venous wound left ankle -: Hypothyroidism -: Edema BLE -: partial hip replacement 2009 -: Partial hip replacement - Social History Smoking Status: Unknown if ever smoked Alcohol use: Yes CD- Drugs: No Caffeine use: Yes Place of Residence: Home Review of Systems General: Weakness Respiratory: Cough, Shortness of Breath Cardiovascular: Chest Pain Physical Examination Temp Pulse Resp BP Pulse Ox 98.0 F 91 H 18 128/76 97 10/29/22 08:00 10/29/22 08:00 10/29/22 08:00 10/29/22 08:00 10/29/22 08:00 General: Alert, Moderate distress Respiratory: Diminished (Markedly diminished on the left side) Cardiovascular: No edema, Regular rate/rhythm, Normal S1 S2 Gastrointestinal: Normal bowel sounds, Soft and benign, Non-distended - Problems (1) Lung cancer Current Visit: Yes Status: Acute Plan: Patient is 71 years of age admitted with worsening dyspnea hoarseness she has a large lung mass with associated pleural effusion is likely stage IV lung cancer will admit for symptom relief insertion of a Pleurx catheter Labs reviewed mildly hypokalemic mild anemia will await for cytology prognosis is poor Qualifiers: Laterality: left
[2022-10-29] MEDS: HYDROCODONE/APAP 10/325 TAB PO SCH ×4 (09:44→20:41)
[2022-10-29] MEDS: ARFORMOTEROL TARTRATE 15 MCG/2 ML VIAL.NEB NEB SCH ×2 (10:05→19:20)
--- NOTE | 2022-10-29 10:08 | P.PN ---
Subjective Date of Service: 10/29/22 Chief Complaint: Shortness of breath and chronic hoarseness No significant change s/p Pleurx catheter patient connected to suction bottle has some chest pain and hoarse Review of Systems General: Weakness Respiratory: Cough, Shortness of Breath Cardiovascular: Chest Pain Physical Examination - Vital Signs Temperature: 98.0 F Blood Pressure: 128/76 Pulse: 91 Respirations: 18 Pulse Ox (%): 97 - Physical Exam General: Alert, Oriented x3, Mild distress Respiratory: Diminished (Diminished on the left side) Cardiovascular: No edema, Regular rate/rhythm, Normal S1 S2 Assessment And Plan - Current Problems (Diagnosis) (1) Lung cancer Current Visit: Yes Status: Acute Plan: Patient is 71 years of age admitted with a presumed malignant effusion on the left side and has stage IV lung cancer presumably the cytology is pending. Bronchodilators and steroids IV pain medications Qualifiers: Laterality: left Physician Review: Patient Assessed, Agree with Above Assessment and Plan
[2022-10-29] MEDS: METHYLPREDNISOLONE 40 MG INJ IV SCH ×2 (10:52→20:45)
[2022-10-29] MEDS: HYDROMORPHONE HCL 2 MG/ML inj IV PRN (10:52)
--- NOTE | 2022-10-29 12:46 | RAD REPORT ---
EXAM DESCRIPTION: RAD - Chest Single View - 10/29/2022 12:34 pm CLINICAL HISTORY: Status Post Thorocentesis Chest pain. COMPARISON: Chest Single View dated 10/29/2022; Chest Single View dated 10/28/2022; Chest Single View da ba 10/27/2022; Chest Pa And Lat (2 Views) dated 09/16/2019 FINDINGS: Portable technique limits examination quality. There has been mild decrease in the size of the left pleural effusion. No pneumothorax. Left-sided pl eural catheter is in place. Right lung is emphysematous but clear.
[2022-10-29 12:55] LABS: Appearance VERY TURBID (CLEAR); Body Fluid Source PLEURAL; Body Fluid WBC 1039 /mm^3; Color of fluid Red (COLORLESS)
--- NOTE | 2022-10-29 13:51 | P.PN ---
Subjective Date of Service: 10/29/22 Chief Complaint: Shortness of breath and chronic hoarseness Status post Pleurx catheter placement yesterday. Patient reports improvement in her shortness of breath but complaining of pain with deep breathing. Physical Examination - Vital Signs Temperature: 98.0 F Blood Pressure: 128/76 Pulse: 91 Respirations: 18 Pulse Ox (%): 97 Assessment And Plan - Plan Physical Exam General: Alert, In no apparent distress, Oriented x3 Neck: Supple, JVD not distended Respiratory: Diminished on the left, no crackles. Cardiovascular: No edema, Normal pulses, Regular rate/rhythm, Normal S1 S2 Gastrointestinal: Soft and benign Musculoskeletal: No swelling Integumentary: Ankle wound Neurological: Normal speech, Normal strength at 5/5 x4 extr, Normal tone, Cranial nerves 3-12 intact Diagnosis Acute respiratory failure with hypoxia Large left pleural effusion Emphysema/COPD Hyponatremia Hypokalemia Normocytic anemia Chronic ankle wound Plan Dyspnea Large left pleural effusion/COPD/emphysema Acute diastolic heart failure Dr. Sepulveda pulmonary, Dr. Gale, following Status post Pleurx catheter by Dr. Gale. Patient still has significant left-sided pleural effusion. Pleural fluid studies ordered. Drain Pleurx catheter as needed. Continue to monitor. Wean off oxygen Patient started on Aldactone by Dr. Sepulveda Hyponatremia Hypokalemia Fluid restriction Monitor renal function Normocytic anemia Monitor and transfuse as needed for hemoglobin less than 7. Hypothyroidism Continue home medication Chronic ankle wound Local wound care Venous HTN w/Ulceration Lymphedema Keep lower extremity elevated ull code DVT: Lovenox Discharge Plan: Home
[2022-10-29] MEDS: SPIRONOLACTONE 25 MG TABLET PO SCH (20:40)
[2022-10-29] MEDS: ALPRAZOLAM 0.25 MG TABLET PO PRN (20:45)
[2022-10-30] MEDS: HYDROCODONE/APAP 10/325 TAB PO PRN (05:02)
[2022-10-30] MEDS: LEVOTHYROXINE SOD 0.075 MG TAB PO SCH (05:02)
[2022-10-30 06:59] LABS: AST/SGOT 18 U/L (15-37); Albumin 2.4 g/dL (3.4-5.0); Alkaline Phosphatase 104 U/L (45-117); BUN Blood Urea Nitrogen 22 mg/dL (7-18); Bicarbonate 30 mEq/L (21-32); Bilirubin Total 0.3 mg/dL (0.2-1.0); Glomerular Filtration Rate 90 ml/min (=/>90); Glucose Level 130 mg/dL (74-106); Potassium 4.6 mEq/L (3.5-5.1); Protein, Total 6.6 g/dL (6.4-8.2); Sodium Level 132 mEq/L (136-145)
[2022-10-30 07:03] LABS: ALT/SGPT < 10 U/L (13-56)
[2022-10-30] MEDS: ARFORMOTEROL TARTRATE 15 MCG/2 ML VIAL.NEB NEB SCH ×2 (07:20→20:35)
--- NOTE | 2022-10-30 08:01 | RAD REPORT ---
EXAM DESCRIPTION: RADChest Single View10/30/2022 7:35 am CLINICAL HISTORY: Pleural effusion COMPARISON: Chest Single View dated 10/29/2022; Chest Single View dated 10/29/2022; Chest Single View da ba 10/28/2022; Chest Single View dated 10/27/2022 TECHNIQUE: Portable AP view of the chest. FINDINGS: Stable left basilar pleural-parenchymal opacity with patchy opacity in the left upper lung . The component of effusion is stable, with stable positioning of left basal pleural drainage cathete r. No pneumothorax. The cardiomediastinal contours are unremarkable. IMPRESSION: Stable findings, as above.
[2022-10-30] MEDS: SPIRONOLACTONE 25 MG TABLET PO SCH ×2 (08:37→20:17)
[2022-10-30] MEDS: HYDROCODONE/APAP 10/325 TAB PO SCH ×4 (08:38→20:17)
[2022-10-30] MEDS: METHYLPREDNISOLONE 40 MG INJ IV SCH ×2 (08:38→20:18)
[2022-10-30] MEDS: ENSURE ENLIVE 237 ML CAN PO SCH ×2 (08:39→20:18)
[2022-10-30] MEDS: ENOXAPARIN 40 MG/0.4 ML SQ SCH (08:39)
--- NOTE | 2022-10-30 12:33 | P.PN ---
Subjective Date of Service: 10/30/22 Chief Complaint: Shortness of breath and chronic hoarseness Status post Pleurx catheter placement 10/28 Patient reports improvement in her shortness of breath. No issues overnight. She has been tolerating room air. Physical Examination - Vital Signs Temperature: 97.5 F Blood Pressure: 128/81 Pulse: 94 Respirations: 16 Pulse Ox (%): 98 Assessment And Plan - Plan Physical Exam General: Alert, In no apparent distress, Oriented x3 Neck: Supple, JVD not distended Respiratory: Diminished on the left, no crackles. Cardiovascular: No edema, Normal pulses, Regular rate/rhythm, Normal S1 S2 Gastrointestinal: Soft and benign Musculoskeletal: No swelling Integumentary: Ankle wound Neurological: Normal speech, Normal strength at 5/5 x4 extr, Normal tone, Cranial nerves 3-12 intact Diagnosis Acute respiratory failure with hypoxia Large left pleural effusion Emphysema/COPD Hyponatremia Hypokalemia Normocytic anemia Chronic ankle wound Plan Dyspnea Large left pleural effusion/COPD/emphysema Acute diastolic heart failure Dr. Sepulveda pulmonary, Dr. Gale, following Status post Pleurx catheter by Dr. Gale. Status post drainage x2. Pleural fluid studies pending Drain Pleurx catheter as needed. Continue to monitor. She is currently tolerating room air. Patient started on Aldactone by Dr. Sepulveda Awaiting arrangement for home health with supplies for previous catheter drainage prior to discharge. Hyponatremia Hypokalemia Hyponatremia is improving Fluid restriction Monitor renal function Normocytic anemia Monitor and transfuse as needed for hemoglobin less than 7. Hypothyroidism Continue home medication Chronic ankle wound Local wound care Venous HTN w/Ulceration Lymphedema Keep lower extremity elevated Full code DVT: Lovenox Discharge Plan: Home with home health.
[2022-10-30] MEDS: HYDROMORPHONE HCL 2 MG/ML inj IV PRN (15:37)
[2022-10-30] MEDS: ALPRAZOLAM 0.25 MG TABLET PO PRN (20:24)
[2022-10-31] MEDS: HYDROCODONE/APAP 10/325 TAB PO PRN ×2 (01:21→05:52)
[2022-10-31] MEDS: LEVOTHYROXINE SOD 0.075 MG TAB PO SCH (05:52)
[2022-10-31] MEDS ORDERED: MAGNESIUM SULFATE 1 gm IVPB 1 GM/100 ML BAG IV ONE (06:59)
[2022-10-31] MEDS: ARFORMOTEROL TARTRATE 15 MCG/2 ML VIAL.NEB NEB SCH (07:20)
--- NOTE | 2022-10-31 07:29 | RAD REPORT ---
EXAM DESCRIPTION: RAD - Chest Single View - 10/31/2022 5:55 am CLINICAL HISTORY: Pleural effusion COMPARISON: Chest Single View dated 10/30/2022; Chest Single View dated 10/29/2022; Chest Single View d ated 10/29/2022; Chest Single View dated 10/28/2022; Chest For Pe Angio dated 10/27/2022 FINDINGS: Lines: None. Lungs: Irregular nodularity within the aerated portions of the left upper lobe. The left lower lobe i s largely atelectatic. Pleural: Moderate left pleural effusion with pleural catheter in place. Cardiac: Shifted to the right. Mediastinum: Within normal limits. Bones: No acute fractures. Other: None IMPRESSION: Moderate residual left pleural fluid with tunneled pleural catheter in place. Irregular airspace disease in the residual aerated left upper lobe could reflect either malignancy and/or pneum onia. The right lung is clear.
[2022-10-31] MEDS: HYDROCODONE/APAP 10/325 TAB PO SCH ×4 (08:00→20:51)
[2022-10-31] MEDS: ENSURE ENLIVE 237 ML CAN PO SCH ×2 (08:01→21:00)
[2022-10-31] MEDS: SPIRONOLACTONE 25 MG TABLET PO SCH ×2 (08:01→20:51)
[2022-10-31] MEDS: METHYLPREDNISOLONE 40 MG INJ IV SCH ×2 (08:02→20:51)
[2022-10-31] MEDS: ENOXAPARIN 40 MG/0.4 ML SQ SCH (08:02)
--- NOTE | 2022-10-31 10:37 | RAD REPORT ---
EXAM DESCRIPTION: CT - Thorax Wo Con - 10/31/2022 9:52 am CLINICAL HISTORY: loculated effusion COMPARISON: Chest For Pe Angio dated 10/27/2022 FINDINGS: Chest Wall: No suspicious thyroid nodules or pathologic lymphadenopathy. Lungs: Much of the left lung is collapse as result of the complex left pleural effusion. Pleural nodu larity including more masslike pleural based lesion in the left upper lobe measuring 3.5 cm. Pleura: Complex left pleural effusion with multiple air-fluid levels. There are areas of pleural base d peripheral nodularity within the effusion. Mediastinum/vince: Left hilar soft tissue. No mediastinal adenopathy identified. Pulmonary arteries/Aorta: Limited evaluation without contrast. No aortic aneurysm. Dilated azygos vei n. Heart: No significant pericardial effusion. Normal heart size. Upper abdomen: No acute abnormality. Bones: No acute abnormality. All CT scans are performed using dose optimization technique as appropriate and may include automated exposure control or mA/KV adjustment according to patient size. IMPRESSION: Moderate left pleural effusion with tunneled pleural drain in place. The effusion is com plex and probably malignant. A masslike lesion is present in the medial left upper lobe with rind of subpleural thickening in the left lung. This is concerning for neoplasm. Correlate with cytology from the pleural fluid.
[2022-10-31] MEDS: HYDROMORPHONE HCL 2 MG/ML inj IV PRN (12:09)
--- NOTE | 2022-10-31 12:35 | P.PN ---
Subjective Date of Service: 10/31/22 Chief Complaint: Chronic pleural effusion likely secondary to lung cancer Patient is feeling a little better no significant drainage still short of breath pain is little better manage Review of Systems General: Weakness Respiratory: Shortness of Breath Cardiovascular: Chest Pain Physical Examination - Vital Signs Temperature: 97.4 F Blood Pressure: 129/75 Pulse: 75 Respirations: 18 Pulse Ox (%): 99 - Physical Exam General: Alert, Mild distress Respiratory: Diminished (Managed on the left side) Cardiovascular: No edema, Regular rate/rhythm, Normal S1 S2 Assessment And Plan - Current Problems (Diagnosis) (1) Lung cancer Current Visit: Yes Status: Acute Plan: Patient most likely has terminal stage IV lung cancer extensive mediastinal adenopathy with a pleural effusion s/p Pleurx catheter will discussed with the patient guarding further management possible hospice care vital signs oxygenation satisfactory cytology is pending pleural fluid data is also pending stable discharge with Rx bottles Qualifiers: Laterality: left Physician Review: Patient Assessed, Agree with Above Assessment and Plan
--- NOTE | 2022-10-31 20:29 | P.PN ---
Subjective Date of Service: 10/31/22 Chief Complaint: Chronic pleural effusion likely secondary to lung cancer Patient is complaining of pain with breathing. She has been tolerating room air. Physical Examination - Vital Signs Temperature: 97.4 F Blood Pressure: 132/76 Pulse: 73 Respirations: 18 Pulse Ox (%): 97 Assessment And Plan - Plan Physical Exam General: Alert, In no apparent distress, Oriented x3 Neck: Supple, JVD not distended Respiratory: Diminished on the left, no crackles. Cardiovascular: No edema, Normal pulses, Regular rate/rhythm, Normal S1 S2 Gastrointestinal: Soft and benign Musculoskeletal: No swelling Integumentary: Ankle wound Neurological: Normal speech, Normal strength at 5/5 x4 extr, Normal tone, Cranial nerves 3-12 intact Diagnosis Acute respiratory failure with hypoxia Large left pleural effusion Emphysema/COPD Hyponatremia Hypokalemia Normocytic anemia Chronic ankle wound Plan Dyspnea Large left pleural effusion/COPD/emphysema Acute diastolic heart failure Lung mass Dr. Sepulveda pulmonary, Dr. Gale, following Status post Pleurx catheter by Dr. Gale. Status post drainage x2. Pleural fluid studies pending-RBC CT chest after pleural effusion drainage shows left lung mass Drain Pleurx catheter as needed. Continue to monitor. She is currently tolerating room air. Patient started on Aldactone by Dr. Sepulveda Suspected stage IV lung cancer per Dr. Sepulveda and hospice recommended. Social service consulted for hospice arrangement.. Hyponatremia Hypokalemia Hyponatremia is improving. Hyponatremia likely secondary to SIADH. Fluid restriction Monitor renal function Normocytic anemia Monitor and transfuse as needed for hemoglobin less than 7. Hypothyroidism Continue home medication Chronic ankle wound Local wound care Venous HTN w/Ulceration Lymphedema Keep lower extremity elevated Full code DVT: Lovenox
[2022-10-31] MEDS: ALPRAZOLAM 0.25 MG TABLET PO PRN (20:54)
[2022-10-31 22:58] VITALS: BMI 16.9
[2022-11-01] MEDS: HYDROCODONE/APAP 10/325 TAB PO PRN ×2 (01:26→06:25)
[2022-11-01 03:56] LABS: Magnesium 2.3 mg/dL (1.6-2.4); Potassium 4.5 mEq/L (3.5-5.1)
[2022-11-01] MEDS: LEVOTHYROXINE SOD 0.075 MG TAB PO SCH (06:22)
--- NOTE | 2022-11-01 06:46 | P.PN ---
Date of Service: 11/01/22 Subjective: Feeling a little better today appetite improving breathing more comfortably on room air today no acute events overnight afebrile pleurx drained yesterday; reports significant discomfort at insertion site / ribs requiring IV pain medication ROS: 10 point ROS as noted above, otherwise negative Physical Exam: GEN: Alert, oriented, NAD at rest HEENT: Normal conjunctiva, sclera anicteric CV: Regular rate and rhythm, no edema Pulm: Nonlabored respirations on room air at rest, diminished on left side ABD: Soft, nontender, nondistended Neuro: Normal speech, normal affect vitals reviewed Problem List: Acute respiratory failure with hypoxia secondary to left pleural effusion Large left pleural effusion Emphysema/COPD Acute diastolic heart failure Lung mass Hyponatremia Hypokalemia Normocytic anemia Chronic ankle wound Venous HTN w/Ulceration Lymphedema Acute respiratory failure with hypoxia Large left pleural effusion COPD/emphysema Acute diastolic heart failure CXR (11/01): Moderate residual left pleural fluid with tunneled pleural catheter in place. No change since 10/31/2022. Pleural fluid studies: pending Pulm and General surgery following s/p Pleurx catheter (10/28) by Dr. Gale. s/p drainage x2. last done 10/31 Drain Pleurx catheter as needed. reporting significant pain during drainage at insertion site of pleurx - needing IV pain medication continue Aldactone currently tolerating room air PRN pain medication check CXR tomorrow to re-eval effusion, may need drainage Lung mass CT chest after pleural effusion drainage shows left lung mass Suspected stage IV lung cancer per Dr. Sepulveda 11/01 - not ready for hospice but agreeable to home health and plans to f/u with Oncology Hyponatremia Hypokalemia Hyponatremia is improving. Hyponatremia likely secondary to SIADH. Fluid restriction Monitor renal function Normocytic anemia stable, Monitor H&H. Hypothyroidism Continue home medications Chronic ankle wound Venous HTN w/Ulceration Lymphedema Local wound care Keep lower extremity elevated VTE: Lovenox Code: DNR Dispo: Home with , ~1 day Pending further improvement, pain
--- NOTE | 2022-11-01 07:12 | RAD REPORT ---
EXAM DESCRIPTION: RAD - Chest Single View - 11/01/2022 6:01 am CLINICAL HISTORY: Pleural effusion COMPARISON: Chest Single View dated 10/31/2022; Chest Single View dated 10/30/2022; Chest Single View dated 10/29/2022; Chest Single View dated 10/29/2022 FINDINGS: Lines: Tunneled pleural catheter in the left lower lung Lungs: Right lung is clear. Irregular airspace disease in the remain visualized left upper lobe. Pleural: Moderate left pleural fluid with tunneled pleural catheter in place. Cardiac: Similar size and configuration. Mediastinum: Within normal limits. Bones: No acute fractures. Other: None IMPRESSION: No change since 10/31/2022. Moderate residual left pleural fluid with tunneled pleural c atheter in place. Irregular left upper lobe airspace disease which probably mostly related to neoplas m. The right lung remains clear.
[2022-11-01] MEDS: HYDROCODONE/APAP 10/325 TAB PO SCH ×4 (08:53→20:21)
[2022-11-01] MEDS: SPIRONOLACTONE 25 MG TABLET PO SCH ×2 (08:53→20:21)
[2022-11-01] MEDS: ENSURE ENLIVE 237 ML CAN PO SCH ×2 (08:54→20:25)
[2022-11-01] MEDS: METHYLPREDNISOLONE 40 MG INJ IV SCH ×2 (08:54→20:21)
[2022-11-01] MEDS: ENOXAPARIN 40 MG/0.4 ML SQ SCH (08:55)
[2022-11-01] MEDS: ALPRAZOLAM 0.25 MG TABLET PO PRN (20:23)
[2022-11-01] MEDS: HYDROMORPHONE HCL 2 MG/ML inj IV PRN (23:08)
[2022-11-02 04:21] LABS: Absolute Lymphocytes (CBC) 0.6 K/uL (0.7-4.9); Hematocrit 28.5 % (36.0-45.0); Lymphocytes % 5.8 % (15.3-44.8); MCV 85.3 fL (80-100); MPV 7.6 fL (7.6-11.3); Platelets 635 thou/uL (152-406); RBC Red Blood Cell Count 3.34 M/uL (3.86-4.86)
[2022-11-02 04:39] LABS: Magnesium 1.9 mg/dL (1.6-2.4)
[2022-11-02 05:37] LABS: Blood Morphology Comment NOT SEEN (NOT SEEN); Platelet Estimate INCR
[2022-11-02] MEDS: LEVOTHYROXINE SOD 0.075 MG TAB PO SCH (05:50)
[2022-11-02] MEDS: HYDROCODONE/APAP 10/325 TAB PO PRN ×2 (05:51→21:23)
--- NOTE | 2022-11-02 08:03 | RAD REPORT ---
EXAM DESCRIPTION: [place] Single View11/02/2022 4:55 am CLINICAL HISTORY: Pleural effusion COMPARISON: November 01, 2022 FINDINGS: No change in a moderate left pleural effusion with left lower lobe atelectasis. No change in the position of the left pleural catheter Left upper lobe opacity unchanged Right lung appears clear of acute infiltrate. Heart is borderline enlarged
--- NOTE | 2022-11-02 08:27 | P.PN ---
Date of Service: 11/02/22 Subjective: Doing okay Breathing ~same yesterday surgical site is tender, most painful during drainage significant pain with drainage today; requiring IV dilaudid ROS: 10 point ROS as noted above, otherwise negative Physical Exam: GEN: Alert, oriented, NAD at rest prior to drainage HEENT: Normal conjunctiva, sclera anicteric CV: Regular rate and rhythm, no edema Pulm: mild labored respirations on room air at rest, diminished on left side ABD: Soft, nontender, nondistended Neuro: Normal speech, normal affect vitals reviewed Problem List: Acute respiratory failure with hypoxia secondary to left pleural effusion Large left pleural effusion; likely malignant Emphysema/COPD Acute diastolic heart failure Lung mass Hyponatremia Hypokalemia Normocytic anemia Chronic ankle wound Venous HTN w/Ulceration Lymphedema Acute respiratory failure with hypoxia Large left pleural effusion COPD/emphysema Acute diastolic heart failure CXR(11/02): No change in a moderate left pleural effusion with left lower lobe atelectasis. No change in the position of the left pleural catheter Pleural fluid studies: pending Pulm and General surgery following s/p Pleurx catheter (10/28) by Dr. Gale. s/p drainage x2. last done 10/31 will likely need another drain given CXR with no significant change Drain Pleurx catheter as needed. reporting significant pain during drainage at insertion site of pleurx give [place] ~1 hour prior to drainage continue Aldactone currently tolerating room air PRN pain medication Lung mass CT chest after pleural effusion drainage shows left lung mass Suspected stage IV lung cancer per Dr. Sepulveda 11/01 - not ready for hospice but agreeable to home health and plans to f/u with Oncology Hyponatremia Hypokalemia Hyponatremia is improving. Hyponatremia likely secondary to SIADH. Fluid restriction Monitor renal function Normocytic anemia stable, Monitor H&H. Hypothyroidism Continue home medications Chronic ankle wound Venous HTN w/Ulceration Lymphedema Local wound care Keep lower extremity elevated VTE: Lovenox Code: DNR Dispo: Home with , ~1 day Pending further improvement, pain
[2022-11-02] MEDS ORDERED: HYDROMORPHONE HCL 0.5 MG/0.5 ML INJ IV PRN (08:29)
[2022-11-02] MEDS ORDERED: HYDROCODONE/APAP 5/325 MG TAB PO ONE (08:30)
[2022-11-02] MEDS: ENOXAPARIN 40 MG/0.4 ML SQ SCH (09:00)
[2022-11-02] MEDS: ENSURE ENLIVE 237 ML CAN PO SCH ×2 (09:00→21:41)
[2022-11-02] MEDS: SPIRONOLACTONE 25 MG TABLET PO SCH ×2 (09:45→21:22)
[2022-11-02] MEDS: HYDROCODONE/APAP 10/325 TAB PO SCH ×3 (09:46→16:41)
[2022-11-02] MEDS: METHYLPREDNISOLONE 40 MG INJ IV SCH ×2 (09:49→21:21)
[2022-11-02] MEDS: ALPRAZOLAM 0.25 MG TABLET PO PRN (21:39)
[2022-11-02 22:31] VITALS: O2SAT 98
[2022-11-03] MEDS: HYDROCODONE/APAP 10/325 TAB PO SCH ×3 (02:46→12:49)
--- NOTE | 2022-11-03 06:59 | P.PN ---
Date of Service: 11/03/22 Subjective: ROS: 10 point ROS as noted above, otherwise negative Physical Exam: GEN: Alert, oriented, NAD at rest prior to drainage HEENT: Normal conjunctiva, sclera anicteric CV: Regular rate and rhythm, no edema Pulm: mild labored respirations on room air at rest, diminished on left side ABD: Soft, nontender, nondistended Neuro: Normal speech, normal affect vitals reviewed Problem List: Acute respiratory failure with hypoxia secondary to left pleural effusion Large left pleural effusion; likely malignant Emphysema/COPD Acute diastolic heart failure Lung mass Hyponatremia Hypokalemia Normocytic anemia Chronic ankle wound Venous HTN w/Ulceration Lymphedema Acute respiratory failure with hypoxia Large left pleural effusion COPD/emphysema Acute diastolic heart failure CXR(11/02): No change in a moderate left pleural effusion with left lower lobe atelectasis. No change in the position of the left pleural catheter Pleural fluid studies: pending Pulm and General surgery following s/p Pleurx catheter (10/28) by Dr. Gale. s/p drainage x2. last done 10/31 will likely need another drain given CXR with no significant change Drain Pleurx catheter as needed. reporting significant pain during drainage at insertion site of pleurx give [place] ~1 hour prior to drainage continue Aldactone currently tolerating room air PRN pain medication Lung mass CT chest after pleural effusion drainage shows left lung mass Suspected stage IV lung cancer per Dr. Sepulveda 11/01 - not ready for hospice but agreeable to home health and plans to f/u with Oncology Hyponatremia Hypokalemia Hyponatremia is improving. Hyponatremia likely secondary to SIADH. Fluid restriction Monitor renal function Normocytic anemia stable, Monitor H&H. Hypothyroidism Continue home medications Chronic ankle wound Venous HTN w/Ulceration Lymphedema Local wound care Keep lower extremity elevated VTE: Lovenox Code: DNR Dispo: Home with HH, ~1 day Pending further improvement, pain
[2022-11-03] MEDS: ENOXAPARIN 40 MG/0.4 ML SQ SCH (08:35)
[2022-11-03] MEDS: LEVOTHYROXINE SOD 0.075 MG TAB PO SCH (08:37)
[2022-11-03] MEDS: SPIRONOLACTONE 25 MG TABLET PO SCH (08:37)
[2022-11-03] MEDS: METHYLPREDNISOLONE 40 MG INJ IV SCH (08:38)
[2022-11-03] MEDS: ENSURE ENLIVE 237 ML CAN PO SCH (08:38)
--- NOTE | 2022-11-03 11:01 | P.DS ---
Admission Date: 10/27/22 Discharge Date: 11/03/22 Disposition: ROUTINE DISCHARGE Discharge Condition: FAIR Reason for Admission: Chronic pleural effusion likely secondary to lung cancer Consultations: General surgery - Dr. Gale Pulmonology - Dr. Sepulveda Brief History of Present Illness: 71 yo F, PMH: hypertension, hypothyroidism chronic pain, chronic wound to the lower foot ankle x 6 years Patient presents to the emergency room with shortness of breath. She reports shortness of breath is worse with exertion. She reports occasional nonproductive cough, no reported chest pain fever, nausea vomiting diarrhea., she denies history of cancer. VS BP 133 / 82; Pulse 98; Resp 18; Temp 98.1(TE); Pulse Ox 100% ; plan to admit for - Pleural effusion in other conditions classified elsewhere, Dyspnea Dr. Sepulveda pulmonary, Dr. Gale, consulted for Pleurx catheter in the a.m. Laboratory evaluation WBCs within normal limit, normocytic anemia 9.6, 30.1 neutrophils 83.1, mild hyponatremia 132, mild hypokalemia 3.0, BUN and creatinine normal 14, 0.76, BNP 497, troponin normal 7.1CTA IMPRESSION: No evidence of pulmonary thromboembolism, The right lung is emphysematous.Large left pleural effusion with significant atelectasis of the left lung. Patchy opacities are also present in the left upper lobe.No concerning bony finding. Right-sided paraspinal varicosities. CXR done in the ED noted large left pleural effusion Hospital Course: Problem List: Acute respiratory failure with hypoxia secondary to left pleural effusion Large left pleural effusion; likely malignant Emphysema/COPD Acute diastolic CHF Lung mass Hyponatremia Hypokalemia Normocytic anemia Chronic ankle wound Venous HTN w/Ulceration Lymphedema Patient presented with worsening shortness of breath. She was found to have a large left pleural effusion, noted on CTA of the chest. Pulm and General surgery was consulted. Dr. Gale placed a pleurx catheter on 10/28 and was drained 3 times during her hospitalization (the last one being on 11/02). Patients hospitalization was prolonged d/t significant pain during drainage at insertion site of pleurx and needing frequent IV pain medication. Patient was feeling better, breathing more comfortably on room air, pain more tolerable, and was deemed stable for discharge home with home health. During her hospitalization, CT chest after pleural effusion drainage noted a 3.5 cm masslike lesion is present in the medial left upper lobe with rind of subpleural thickening in the left lung. Dr. Sepulveda, Pulmonology, felt this was consistent with malignant effusion, secondary to new diagnosis of stage IV lung cancer. He discussed consideration of hospice with the patient, who decided on pursuing home health at this time. Palliative drainage to be done based on symptoms, no set times. When patient is feeling more short of breath, to attempt drainage at home. Concern for neoplasm, recommend repeat imaging in a few months for further monitoring and to follow up with oncology in a few weeks as discussed. If you have any further questions, recommend to discuss with Dr. Mao Sepulveda when you follow up with him Follow up: PCP 3-5 days Pulmonology - Dr. Sepulveda in 1-2 weeks Oncology in a few weeks Physical Exam: GEN: Alert, oriented, NAD at rest prior to drainage HEENT: Normal conjunctiva, sclera anicteric CV: Regular rate and rhythm, no edema Pulm: mild labored respirations on room air at rest, diminished on left side ABD: Soft, nontender, nondistended Neuro: Normal speech, normal affect Vital Signs/Physical Exam: Temp Pulse Resp BP Pulse Ox 97.1 F 61 18 166/97 H 96 11/03/22 08:00 11/03/22 08:00 11/03/22 08:00 11/03/22 08:00 11/03/22 08:00 Laboratory Data at Discharge: WBC 10.10 thou/uL (4.3-10.9) 11/02/22 03:44 Hgb 9.5 g/dL (12.0-15.0) L 11/02/22 03:44 Hct 28.5 % (36.0-45.0) L 11/02/22 03:44 Plt Count 635 thou/uL (152-406) H 11/02/22 03:44 PT 13.2 SECONDS (9.5-12.5) H 10/27/22 18:30 INR 1.20 10/27/22 18:30 Sodium 132 mEq/L (136-145) L 11/02/22 03:44 Potassium 5.0 mEq/L (3.5-5.1) 11/02/22 03:44 BUN 29 mg/dL (7-18) H 11/02/22 03:44 Creatinine 0.71 mg/dL (0.55-1.02) 11/02/22 03:44 Glucose 111 mg/dL (74-106) H 11/02/22 03:44 Magnesium 1.9 mg/dL (1.6-2.4) 11/02/22 03:44 Total Bilirubin 0.3 mg/dL (0.2-1.0) 10/30/22 06:19 AST 18 U/L (15-37) 10/30/22 06:19 ALT < 10 U/L (13-56) L 10/30/22 06:19 Alkaline Phosphatase 104 U/L (45-117) 10/30/22 06:19 Home Medications: Hydrocodone 10/APAP 325 [[place] 10/325*] 1 tab PO QID 03/02/17 Thyroid,Pork [[place] Thyroid] 60 mg PO DAILY 03/02/17 Thyroid,Pork [[place] Thyroid] 15 mg PO DAILY 09/12/19 hydroCHLOROthiazide [Hydrochlorothiazide] 50 mg PO DAILY 09/12/19 Acetic Acid 0.25% [Acetic Acid 0.25%*] 10 ml IR DAILY 09/16/19 Collagenase [Santyl Ointment*] 15 gm TP SEECOM 09/16/19 Silver Sulfadiazine Crm [Silvadene*] 1 appl TOP SEECOM 09/16/19 Lisinopril [Zestril] 10 mg PO DAILY 10/28/22 Spironolactone [Aldactone*] 25 mg PO BID 30 Days #60 tab 11/03/22 New Medications: Spironolactone [Aldactone*] 25 mg PO BID 30 Days #60 tab Physician Discharge Instructions: Patient presented with worsening shortness of breath. She was found to have a large left pleural effusion, noted on CTA of the chest. Pulm and General surgery was consulted. Dr. Gale placed a pleurx catheter on 10/28 and was drained 3 times during her hospitalization (the last one being on 11/02). Patients hospitalization was prolonged d/t significant pain during drainage at insertion site of pleurx and needing frequent IV pain medication. Patient was feeling better, breathing more comfortably on room air, pain more tolerable, and was deemed stable for discharge home with home health. During her hospitalization, CT chest after pleural effusion drainage noted a 3.5 cm masslike lesion is present in the medial left upper lobe with rind of subpleural thickening in the left lung. Dr. Sepulveda, Pulmonology, felt this was consistent with malignant effusion, secondary to new diagnosis of stage IV lung cancer. He discussed consideration of hospice with the patient, who decided on pursuing home health at this time. Palliative drainage to be done based on symptoms, no set times. When patient is feeling more short of breath, to attempt drainage at home. Concern for neoplasm, recommend repeat imaging in a few months for further monitoring and to follow up with oncology in a few weeks as discussed. If you have any further questions, recommend to discuss with Dr. Mao Sepulveda when you follow up with him Follow up: PCP 3-5 days Pulmonology - Dr. Sepulveda in 1-2 weeks Oncology in a few weeks Followup: Mao Sepulveda MD [Primary Care Provider] - Time spent managing pt's care (in minutes): 45
[2022-11-03 11:50] VITALS: BP 167/94; TEMP 98
[2022-11-04 05:16] LABS: CHOLESTEROL, PLEURAL FLUID 84 mg/dL; TOTAL PROTEIN, PLEURAL FLUID 4.6 g/dL
== END 2022-11-03 16:07 | disposition home health service (06) | DRG 180 ==
LOC: ER 17:24 → ERHOLD 20:50 → 2ND 23:38
PROVIDERS: ADMIT Internal Medicine; ATTEND Hospitalist
PROC: 0W9B30Z Drainage of Left Pleural Cavity with Drainage Device, Percutaneous Approach (ICD-10-PCS; principal; 2022-10-28 10:30)
DX: C34.92 Malignant neoplasm of unspecified part of left bronchus or lung (principal); E43 Unspecified severe protein-calorie malnutrition; I50.31 Acute diastolic (congestive) heart failure; J96.01 Acute respiratory failure with hypoxia; Z68.1 Body mass index [BMI] 19.9 or less, adult; E87.1 Hypo-osmolality and hyponatremia; I87.312 Chronic venous hypertension (idiopathic) with ulcer of left lower extremity; L97.329 Non-pressure chronic ulcer of left ankle with unspecified severity; J91.0 Malignant pleural effusion; Z66 Do not resuscitate; I11.0 Hypertensive heart disease with heart failure; E03.9 Hypothyroidism, unspecified; J43.9 Emphysema, unspecified; I86.8 Varicose veins of other specified sites; I89.0 Lymphedema, not elsewhere classified; G89.29 Other chronic pain; E87.6 Hypokalemia; D64.9 Anemia, unspecified; Z79.899 Other long term (current) drug therapy; Z96.649 Presence of unspecified artificial hip joint
CPT/HCPCS: 36415; 71045; 71250; 71275; 80048; 80053; 81001; 82945; 83615; 83735; 83880; 84132; 84157; 84311; 84484; 85025; 85610; 87015; 87102; 87116; 87205; 87206; 88108; 88305; 89050; 93005; 99285; J0690; J1170; J1650; J1940; J2001; J2405; J2704; J2920; J3010; J3475; J3480; J7050; J7120; J7605; Q9967